=== PATIENT | female | born 1990 | race Caucasian/White ===

== ENCOUNTER 2021-11-17 01:22 | Emergency (ER) | payer SELFPAY ==
[~2021-11-17] VITALS: Ht 167.6 cm; Wt 68.2 kg
[2021-11-17 01:27] VITALS: BP 155/95
[2021-11-17] MEDS ORDERED: BUPR1FIL3 SL (01:44)
[2021-11-17] MEDS ORDERED: AMIT25TA10 PO (01:44)
[2021-11-17] MEDS ORDERED: ZIPR20CA2 PO (01:44)
== END 2021-11-17 03:43 | disposition left against medical advice (07) ==
LOC: EMS 01:23
DX: R51.9 Headache, unspecified (principal); Z53.21 Procedure and treatment not carried out due to patient leaving prior to being seen by health care provider